=== PATIENT | female | born 1980 | race American Indian/Alaskan Native ===

== ENCOUNTER 2018-03-26 20:29 | Outpatient (CLI) | payer OTHER ==
[2018-03-26 20:52] VITALS: BP 129/75
[2018-03-26] MEDS ORDERED: LACTATED RINGERS 1,000 ML IV ONE (21:01)
== END 2018-03-26 23:26 | disposition home or self-care (01) ==
LOC: TRG 20:29
PROVIDERS: ATTEND Obstetrics & Gynecology
DX: O47.03 False labor before 37 completed weeks of gestation, third trimester (principal); Z3A.35 35 weeks gestation of pregnancy
CPT/HCPCS: 59025; 96360; J7120

== ENCOUNTER 2018-05-11 02:24 | Emergency (ER) | payer OTHER ==
[2018-05-11] MEDS ORDERED: TYLENOL ONE (03:22)
[2018-05-11] MEDS ORDERED: TYLENOL PO ONE (03:29)
[2018-05-11 04:43] VITALS: BP 128/65
[2018-05-11 04:54] LABS: Mean Corpuscular HGB Conc 30 % (30-34); Mean Corpuscular Volume 83 fl (79-97); Platelet Count 540 K/mm3 (140-440); Red Blood Count 4.74 M/mm3 (3.65-5.03); Red Cell Distribution Width 17.8 % (13.2-15.2)
[2018-05-11 04:55] LABS: Hematocrit 39.4 % (30.3-42.9); Hemoglobin 11.8 gm/dl (10.1-14.3)
[2018-05-11 05:13] LABS: Alanine Aminotransferase 20 units/L (7-56); Albumin 4.2 g/dL (3.9-5); BUN/Creatinine Ratio 11; Blood Urea Nitrogen 8 mg/dL (7-17); Calcium 9.8 mg/dL (8.4-10.2); Hemolysis Index 88
[2018-05-11 05:22] LABS: Uric Acid 6.6 mg/dL (3.5-7.6)
--- NOTE | 2018-05-11 06:24 | Emergency Department Report ---
ED Headache HPI - General Chief Complaint: Headache Stated Complaint: HEADACHE Time Seen by Provider: 05/11/18 06:13 - History of Present Illness Allergies/Adverse Reactions: Allergies No Known Allergies Allergy (Unverified 03/26/18 21:01) Home Medications: Ambulatory Orders Docusate Sodium [Colace] 100 mg PO BID PRN #30 capsule 04/24/18 Ferrous Sulfate [Feosol 325 MG tab] 325 mg PO BID #90 tablet 04/24/18 Ibuprofen [Motrin 800 MG tab] 800 mg PO TID PRN #30 tablet 04/24/18 oxyCODONE /ACETAMINOPHEN [Percocet 5/325 mg] 1 - 2 tab PO Q4HR PRN #30 tablet 04/24/18 ED Review of Systems ROS: Stated complaint: HEADACHE Other details as noted in HPI ED Past Medical Hx - Past Medical History Previous Medical History?: No Hx Hypertension: No Hx Congestive Heart Failure: No Hx Diabetes: No Hx Deep Vein Thrombosis: No Hx Renal Disease: No Hx Sickle Cell Disease: No Hx Seizures: No Hx Asthma: No Hx COPD: No Hx HIV: No - Surgical History Past Surgical History?: Yes Additional Surgical History: C-SECTIONS x 2 - Social History Smoking Status: Never Smoker Substance Use Type: None - Medications Home Medications: Home Medications Medication Instructions Recorded Confirmed Last Taken Type Docusate Sodium [Colace] 100 mg PO BID PRN #30 capsule 04/24/18 Unknown Rx Ferrous Sulfate [Feosol 325 MG tab] 325 mg PO BID #90 tablet 04/24/18 Unknown R x Ibuprofen [Motrin 800 MG tab] 800 mg PO TID PRN #30 tablet 04/24/18 Unknown Rx oxyCODONE /ACETAMINOPHEN [Percocet 1 - 2 tab PO Q4HR PRN #30 tablet 04/24/18 Unknown Rx 5/325 mg] ED Physical Exam - General Limitations: No Limitations ED Course Vital Signs 05/11/18 05/11/18 05/11/18 02:29 03:22 04:28 Temperature 97.8 F 97.8 F Pulse Rate 76 87 Respiratory 16 16 Rate Blood Pressure 143/80 128/65 Blood Pressure 131/80 [Left] O2 Sat by Pulse 99 97 Oximetry ED Medical Decision Making - Lab Data Result diagrams: 05/11/18 03:55 05/11/18 03:46 Laboratory Results - last 24 hr 05/11/18 05/11/18 03:46 03:55 WBC 6.1 RBC 4.74 Hgb 11.8 Hct 39.4 MCV 83 MCH 25 L MCHC 30 RDW 17.8 H Plt Count 540 H Lymph % (Auto) Lokie Engineer [place] % (Auto) Lokie Engineer Eos % (Auto) Lokie Engineer Baso % (Auto) Lokie Engineer Lymph # Lokie Engineer [place] # Lokie Engineer Eos # Lokie Engineer Baso # Lokie Engineer Seg Neutrophils % Lokie Engineer Seg Neutrophils # Lokie Engineer Sodium 140 Potassium 4.4 Chloride 104.2 Carbon Dioxide 20 L Anion Gap 20 BUN 8 Creatinine 0.7 Estimated GFR > 60 BUN/Creatinine Ratio 11 Glucose 87 Uric Acid 6.6 Calcium 9.8 Total Bilirubin 0.60 AST 26 ALT 20 Alkaline Phosphatase 91 Total Protein 7.5 Albumin 4.2 Albumin/Globulin Ratio 1.3 Critical care attestation.: If time is entered above; I have spent that time in minutes in the direct care of this critically ill patient, excluding procedure time. ED Disposition Condition: Stable Referrals: JUSTYN GARCIA MD [Primary Care Provider] - 3-5 Days
== END 2018-05-11 06:43 ==
LOC: ED 02:24
DX: R51 Headache (principal); Z53.21 Procedure and treatment not carried out due to patient leaving prior to being seen by health care provider
CPT/HCPCS: 36415; 80053; 84550; 85025